=== PATIENT | female | born 2000 | race Two or more races ===

== ENCOUNTER 2022-06-04 14:33 | Emergency (ER) | payer MEDICAID, SELFPAY ==
--- NOTE | ~2022-06-04 | US_ITS ---
EXAMINATION: US PELVIS CLINICAL INFORMATION: Pelvic pain. Rule out tubo-ovarian abscess COMPARISON: Pelvic ultrasound 03/23/2018, CT abdomen and pelvis 01/30/2014 TECHNIQUE: Ultrasound of the pelvis is performed using both transabdominal and transvaginal transducers along with Doppler. Transvaginal imaging is performed due to inadequate visualization transabdominally. FINDINGS: Uterus: The uterus is anteverted, anteflexed, and measures 7.9 x 2.3 x 4.6 cm in sagittal, AP, transverse dimensions cm. The double wall endometrial thickness is 0.2 mm. An IUD appears appropriately positioned in the endometrial cavity. The uterus is smooth in contour and has normal myometrial echogenicity. No visible fibroid. Adnexa: Both ovaries are visualized. There is normal color flow to the adnexa. There is no ovarian torsion. There is no pelvic ascites or fluid collection. Right ovary measures 3.2 x 1.5 x 1.8 cm, volume 4.5 mL. Left ovary measures 3.2 x 1.4 x 2.1 cm, volume 5 mL. There is an immediately adjacent paraovarian/adnexal cyst measuring approximately 3 x 3.1 x 2.7 cm in size. This contains multiple septations with some peripheral dopplerable flow. No septal vascularity or discrete mural nodules. 3.2 cm similar-appearing cyst was seen on comparison ultrasound performed in 2018 as well. US/US pelvic ovarian doppler IMPRESSION: 1. No evidence of ovarian torsion. 2. Normal uterus. IUD in appropriate position. 3. 3.1 cm left paraovarian/adnexal cyst containing multiple internal septations versus retracted clot. No septal vascularity or mural nodules. Would suggest follow-up pelvic ultrasound in 6-12 weeks to assess for change or resolution. 4. Normal right ovary. 5. No pelvic ascites.
--- NOTE | ~2022-06-04 | XR_ITS ---
EXAMINATION: XR CHEST CLINICAL INFORMATION: Cough COMPARISON: None TECHNIQUE: 2 views of the chest were obtained. FINDINGS: No significant abnormality is noted involving the heart, lungs, mediastinum, bony thorax or soft tissues. XR/XR chest 2V IMPRESSION: Unremarkable examination.
--- NOTE | ~2022-06-04 | US_ITS ---
EXAMINATION: US PELVIS CLINICAL INFORMATION: Pelvic pain. Rule out tubo-ovarian abscess COMPARISON: Pelvic ultrasound 03/23/2018, CT abdomen and pelvis 01/30/2014 TECHNIQUE: Ultrasound of the pelvis is performed using both transabdominal and transvaginal transducers along with Doppler. Transvaginal imaging is performed due to inadequate visualization transabdominally. FINDINGS: Uterus: The uterus is anteverted, anteflexed, and measures 7.9 x 2.3 x 4.6 cm in sagittal, AP, transverse dimensions cm. The double wall endometrial thickness is 0.2 mm. An IUD appears appropriately positioned in the endometrial cavity. The uterus is smooth in contour and has normal myometrial echogenicity. No visible fibroid. Adnexa: Both ovaries are visualized. There is normal color flow to the adnexa. There is no ovarian torsion. There is no pelvic ascites or fluid collection. Right ovary measures 3.2 x 1.5 x 1.8 cm, volume 4.5 mL. Left ovary measures 3.2 x 1.4 x 2.1 cm, volume 5 mL. There is an immediately adjacent paraovarian/adnexal cyst measuring approximately 3 x 3.1 x 2.7 cm in size. This contains multiple septations with some peripheral dopplerable flow. No septal vascularity or discrete mural nodules. 3.2 cm similar-appearing cyst was seen on comparison ultrasound performed in 2018 as well. US/US pelvic and transvaginal IMPRESSION: 1. No evidence of ovarian torsion. 2. Normal uterus. IUD in appropriate position. 3. 3.1 cm left paraovarian/adnexal cyst containing multiple internal septations versus retracted clot. No septal vascularity or mural nodules. Would suggest follow-up pelvic ultrasound in 6-12 weeks to assess for change or resolution. 4. Normal right ovary. 5. No pelvic ascites.
[2022-06-04 14:53] VITALS: BP 125/67; PULSE 98; RESP 18; TEMP 36.7; O2SAT 98; BMI 18.8
--- NOTE | 2022-06-04 14:53 | ED.GENADULT ---
HPI - General Adult General Chief complaint: General Medical <VADIM Goff - Last Filed: 06/07/22 09:21> Stated complaint: Lots of mucus/Ovary issues <VADIM Goff - Last Filed: 06/07/22 09:21> Time Seen by Provider: 06/04/22 15:54 <VADIM Goff Last Filed: 06/07/22 09:21> History of Present Illness HPI narrative: Patient with no complaints First complaint is she you of developed pelvic pain several days ago, pain is not associated with any vaginal discharge or bleeding she has no dysuria no nausea no vomiting no other abdominal pain no back pain no flank pain Second complaint is runny nose and mild cough and feeling congested for 1-2 days, no shortness of breath no chest pain no nausea or vomiting no skin rash no sore throat no difficulty breathing or swallowing <VADIM Molina Last Filed: 06/30/22 11:59> Related Data Home medications: Previous Rx's Medication Instructions Recorded doxycycline hyclate 100 mg tablet 100 mg PO BID 14 days #28 tabs 06/04/22 metronidazole 500 mg tablet 500 mg PO BID 14 days #28 tabs 06/04/22 fluconazole 150 mg tablet 150 mg PO Q3D 2 doses #2 tabs 06/07/22 (Diflucan) <VADIM Goff Last Filed: 06/07/22 09:21> Allergies/adverse reactions: Allergies Allergy/AdvReac Type Severity Reaction Status Date / Time apple [APPLE] Allergy Unknown UNKNOWN Unverified 12/30/19 17:07 <VADIM Goff Last Filed: 06/07/22 09:21> FOR[facility], [facility] Past Medical History Source: nursing notes reviewed <VADIM Molina - Last Filed: 06/30/22 11:59> Social History Social History: Social History Advance Directives: No Advance Directives Information Provided: No <VADIM Goff Last Filed: 06/07/22 09:21> Physical Exam ED Vital Signs: Vital Signs - 24 hr 06/04/22 14:53 Temperature 98.0 F Pulse Rate 98 Respiratory Rate 18 Blood Pressure 125/67 Pulse Oximetry 98 Oxygen Delivery Method Room Air BMI result Body Mass Index 18.8 <VADIM Goff Last Filed: 06/07/22 09:21> Vital Signs - 24 hr 06/04/22 14:53 Temperature 98.0 F Pulse Rate 98 Respiratory Rate 18 Blood Pressure 125/67 Pulse Oximetry 98 Oxygen Delivery Method Room Air BMI result Body Mass Index 18.8 <VADIM Molina - Last Filed: 06/30/22 11:59> General appearance is no acute distress The eyes no redness or discharge The sinuses nontender The pharynx is clear no redness swelling or exudate membranes are moist Neck is supple Chest clear to auscultation with full symmetric equal breath sounds Heart no murmur The abdomen there was mild tenderness in suprapubic region no rebound no guarding Pelvic exam was done by physician rehab care assistant naomi quesada as patient requested a female for the pelvic exam She reported some left adnexal tenderness, no mass no bleeding there was some scant discharge, no cervical motion tenderness, no lesions no ulcerations no rash Extremities range of motion x4 and Skin no rashes <VADIM Molina - Last Filed: 06/30/22 11:59> Course Course Course Narrative: RME--21yo F w/no sig PMHx c/o productive cough with SOB x 2 days. Also reports LLQ abd pain radiating to back x2 days with assoc dysuria. Patient denies fever, nausea/vomiting, vaginal bleeding/discharge COVID-19/flu, CXR, labs, UA ordered <VADIM Goff - Last Filed: 06/07/22 09:21> RME--21yo F w/no sig PMHx c/o productive cough with SOB x 2 days. Also reports LLQ abd pain radiating to back x2 days with assoc dysuria. Patient denies fever, nausea/vomiting, vaginal bleeding/discharge COVID-19/flu, CXR, labs, UA ordered White blood count was 12.3, chemistries without any acute abnormality, LFTs no acute abnormality, was negative, urinalysis was negative Pelvic exam by physician rehab care assistant Naomi showed some adnexal tenderness and patient is sexually active and she will be treated for possible PID with Rocephin and doxycycline and Flagyl Pelvic ultrasound showed no evidence of torsion no evidence of abscess, but did showed a 3.1 cm left paraovarian adnexal cyst with multiple septations She is advised to follow with welder railcar mechanic as she may need a repeat ultrasound in 6-12 weeks <VADIM Molina - Last Filed: 06/30/22 11:59> Reevaluation(s) Reevaluation #1: 06/07/22920--patient's cultures positive for Ely. Called spoke with patient this morning made aware of results, scented Diflucan to the pharmacy <VADIM Goff - Last Filed: 06/07/22 09:21> Medications Administered Discontinued Medications Generic Name Dose Route Start Last Admin Trade Name Freq PRN Reason Stop Dose Admin Ceftriaxone Sodium 500 mg 06/04/22 19:25 06/04/22 20:13 Ceftriaxone Sodium 500 Mg Vial IM 06/04/22 19:26 500 mg ONCE ONE Administration Doxycycline Monohydrate 100 mg 06/04/22 19:25 06/04/22 20:13 Doxycycline Monohydrate 100 Mg Capsule PO 06/04/22 19:26 100 mg ONCE ONE Administration Metronidazole 500 mg 06/04/22 19:25 06/04/22 20:13 Metronidazole 500 Mg Tablet PO 06/04/22 19:26 500 mg ONCE ONE Administration Naproxen 500 mg 06/04/22 18:43 06/04/22 18:46 Naproxen 500 Mg Tablet PO 06/04/22 18:44 Not Given ONCE ONE <VADIM Goff - Last Filed: 06/07/22 09:21> Medications Administered Discontinued Medications Generic Name Dose Route Start Last Admin Trade Name Freq PRN Reason Stop Dose Admin Ceftriaxone Sodium 500 mg 06/04/22 19:25 06/04/22 20:13 Ceftriaxone Sodium 500 Mg Vial IM 06/04/22 19:26 500 mg ONCE ONE Administration Doxycycline Monohydrate 100 mg 06/04/22 19:25 06/04/22 20:13 Doxycycline Monohydrate 100 Mg Capsule PO 06/04/22 19:26 100 mg ONCE ONE Administration Metronidazole 500 mg 06/04/22 19:25 06/04/22 20:13 Metronidazole 500 Mg Tablet PO 06/04/22 19:26 500 mg ONCE ONE Administration Naproxen 500 mg 06/04/22 18:43 06/04/22 18:46 Naproxen 500 Mg Tablet PO 06/04/22 18:44 Not Given ONCE ONE <VADIM Molina - Last Filed: 06/30/22 11:59> Medical Decision Making Lab Data Result Diagrams: 06/04/22 15:20 06/04/22 15:20 <VADIM Goff - Last Filed: 06/07/22 09:21> Labs: Lab Results 06/04/22 06/04/22 06/04/22 Range/Units 01:19 15:20 15:20 WBC (4.8-10.8) X10*3/uL RBC (4.20-5.50) X10*6/uL Hgb (12.0-16.0) g/dl Hct (37.0-47.0) % MCV (80.0-98.0) fL MCH (27.0-33.0) pg MCHC (31.0-35.0) g/dl RDW (11.0-16.0) % Plt Count (160-400) X10*3/uL MPV (9.4-12.3) fL Immature Gran % (Auto) (0.0-0.4) % Neut % (Auto) (45-73) % Lymph % (Auto) (20-40) % Cassia % (Auto) (2-11) % Eos % (Auto) (0-4) % Baso % (Auto) (0-2) % Lymph # (Auto) (1.2-4.9) X10*3/uL Cassia # (Auto) (0.1-1.2) X10*3/uL Eos # (Auto) (0.0-0.4) X10*3/uL Baso # (Auto) (0.0-0.2) X10*3/uL Abs Immat Gran (auto) (0.00-0.03) X10*3/uL Absolute Neuts (auto) (2.0-8.3) x10*3/uL Absolute Nucleated RBC (0.0-0.012) X10*3/uL Nucleated RBC % (auto) (0.0-0.2) /100WBC Sodium (135-145) mmol/L Potassium (3.3-5.1) mmol/L Chloride (96-108) mmol/L Carbon Dioxide (22-29) mmol/L Anion Gap (12-20) BUN (9-16) mg/dL Creatinine (0.5-1.4) mg/dL Estim Creat Clear Calc Estimated GFR Random Glucose (60-115) mg/dL Calcium (8.4-10.2) mg/dL Magnesium (1.6-2.6) mg/dL Total Bilirubin (0.0-1.0) mg/dL Direct Bilirubin (0.0-0.5) mg/dL AST (5-31) U/L ALT (0-31) U/L Alkaline Phosphatase (39-117) U/L Total Protein (6.5-8.0) g/dL Albumin (3.5-5.0) g/dL Lipase (8-78) U/L Urine Color Urine Appearance Urine pH (5.0-9.0) Ur Specific [place] (1.005-1.025) Urine Protein (Neg-Trace) mg/dL Urine Glucose (UA) (Negative) mg/dL Urine Ketones (Negative) mg/dL Urine Blood (Negative) Urine Nitrite (Negative) Ur Leukocyte Esterase (Negative) Urine RBC (0-2) /HPF Urine WBC (0-5) /HPF Ur Squamous Epith Cells (0-2) /HPF Urine Bacteria (None Seen) Hyaline Casts (0-2) /LPF Urine Test (NEGATIVE) Ely species DNA (Negative) Chlam trachomat DNA PCR (Not Detect.) COVID-19 (JUAN) Negative Cancelled (Negative) COVID-19 Clin Com See Note Cancelled Gardnerella DNA Probe (Negative) Influenza Type A (FRED) Negative (Negative) Influenza Type B (FRED) Negative (Negative) Influenza A & B Note See Note N.gonorrhoeae DNA (PCR) (Not Detect.) Trichomonas DNA Probe (Negative) 06/04/22 06/04/22 06/04/22 Range/Units 15:20 15:20 15:20 WBC 12.3 H (4.8-10.8) X10*3/uL RBC 5.07 (4.20-5.50) X10*6/uL Hgb 14.7 (12.0-16.0) g/dl Hct 43.8 (37.0-47.0) % MCV 86.4 (80.0-98.0) fL MCH 29.0 (27.0-33.0) pg MCHC 33.6 (31.0-35.0) g/dl RDW 13.0 (11.0-16.0) % Plt Count 335 (160-400) X10*3/uL MPV 9.1 L (9.4-12.3) fL Immature Gran % (Auto) 0.4 (0.0-0.4) % Neut % (Auto) 74.7 H (45-73) % Lymph % (Auto) 11.0 L (20-40) % Cassia % (Auto) 10.2 (2-11) % Eos % (Auto) 3.3 (0-4) % Baso % (Auto) 0.4 (0-2) % Lymph # (Auto) 1.4 (1.2-4.9) X10*3/uL Cassia # (Auto) 1.3 H (0.1-1.2) X10*3/uL Eos # (Auto) 0.4 (0.0-0.4) X10*3/uL Baso # (Auto) 0.1 (0.0-0.2) X10*3/uL Abs Immat Gran (auto) 0.05 H (0.00-0.03) X10*3/uL Absolute Neuts (auto) 9.2 H (2.0-8.3) x10*3/uL Absolute Nucleated RBC 0.000 (0.0-0.012) X10*3/uL Nucleated RBC % (auto) 0.0 (0.0-0.2) /100WBC Sodium 138 (135-145) mmol/L Potassium 3.6 (3.3-5.1) mmol/L Chloride 104 (96-108) mmol/L Carbon Dioxide 26 (22-29) mmol/L Anion Gap 12 (12-20) BUN 8 L (9-16) mg/dL Creatinine 0.77 (0.5-1.4) mg/dL Estim Creat Clear Calc 84.1 Estimated GFR > 60 Random Glucose 82 (60-115) mg/dL Calcium 9.2 (8.4-10.2) mg/dL Magnesium 2.0 (1.6-2.6) mg/dL Total Bilirubin 0.5 (0.0-1.0) mg/dL Direct Bilirubin < 0.2 (0.0-0.5) mg/dL AST 15 (5-31) U/L ALT 11 (0-31) U/L Alkaline Phosphatase 109 (39-117) U/L Total Protein 7.1 (6.5-8.0) g/dL Albumin 4.2 (3.5-5.0) g/dL Lipase 7 L (8-78) U/L Urine Color Yellow Urine Appearance Cloudy Urine pH 6.5 (5.0-9.0) Ur Specific [place] 1.025 (1.005-1.025) Urine Protein Trace (Neg-Trace) mg/dL Urine Glucose (UA) Negative (Negative) mg/dL Urine Ketones 15 (Negative) mg/dL Urine Blood Negative (Negative) Urine Nitrite Negative (Negative) Ur Leukocyte Esterase Trace H (Negative) Urine RBC 0-2 (0-2) /HPF Urine WBC 0-5 (0-5) /HPF Ur Squamous Epith Cells 6-10 (0-2) /HPF Urine Bacteria 3+ (None Seen) Hyaline Casts 0-2 (0-2) /LPF Urine Test (NEGATIVE) Ely species DNA (Negative) Chlam trachomat DNA PCR (Not Detect.) COVID-19 (JUAN) (Negative) COVID-19 Clin Com Gard[place]rella DNA Probe (Negative) Influenza Type A (FRED) (Negative) Influenza Type B (FRED) (Negative) Influenza A & B Note N.gonorrhoeae DNA (PCR) (Not Detect.) Trichomonas DNA Probe (Negative) 06/04/22 06/04/22 06/04/22 Range/Units 15:20 17:45 17:45 WBC (4.8-10.8) X10*3/uL RBC (4.20-5.50) X10*6/uL Hgb (12.0-16.0) g/dl Hct (37.0-47.0) % MCV (80.0-98.0) fL MCH (27.0-33.0) pg MCHC (31.0-35.0) g/dl RDW (11.0-16.0) % Plt Count (160-400) X10*3/uL MPV (9.4-12.3) fL Immature Gran % (Auto) (0.0-0.4) % Neut % (Auto) (45-73) % Lymph % (Auto) (20-40) % Cassia % (Auto) (2-11) % Eos % (Auto) (0-4) % Baso % (Auto) (0-2) % Lymph # (Auto) (1.2-4.9) X10*3/uL Cassia # (Auto) (0.1-1.2) X10*3/uL Eos # (Auto) (0.0-0.4) X10*3/uL Baso # (Auto) (0.0-0.2) X10*3/uL Abs Immat Gran (auto) (0.00-0.03) X10*3/uL Absolute Neuts (auto) (2.0-8.3) x10*3/uL Absolute Nucleated RBC (0.0-0.012) X10*3/uL Nucleated RBC % (auto) (0.0-0.2) /100WBC Sodium (135-145) mmol/L Potassium (3.3-5.1) mmol/L Chloride (96-108) mmol/L Carbon Dioxide (22-29) mmol/L Anion Gap (12-20) BUN (9-16) mg/dL Creatinine (0.5-1.4) mg/dL Estim Creat Clear Calc Estimated GFR Random Glucose (60-115) mg/dL Calcium (8.4-10.2) mg/dL Magnesium (1.6-2.6) mg/dL Total Bilirubin (0.0-1.0) mg/dL Direct Bilirubin (0.0-0.5) mg/dL AST (5-31) U/L ALT (0-31) U/L Alkaline Phosphatase (39-117) U/L Total Protein (6.5-8.0) g/dL Albumin (3.5-5.0) g/dL Lipase (8-78) U/L Urine Color Urine Appearance Urine pH (5.0-9.0) Ur Specific [place] (1.005-1.025) Urine Protein (Neg-Trace) mg/dL Urine Glucose (UA) (Negative) mg/dL Urine Ketones (Negative) mg/dL Urine Blood (Negative) Urine Nitrite (Negative) Ur Leukocyte Esterase (Negative) Urine RBC (0-2) /HPF Urine WBC (0-5) /HPF Ur Squamous Epith Cells (0-2) /HPF Urine Bacteria (None Seen) Hyaline Casts (0-2) /LPF Urine Test NEGATIVE (NEGATIVE) Ely species DNA Positive A (Negative) Chlam trachomat DNA PCR NOT DETECTED (Not Detect.) COVID-19 (JUAN) (Negative) COVID-19 Clin Com [place] DNA Probe Negative (Negative) Influenza Type A (FRED) (Negative) Influenza Type B (FRED) (Negative) Influenza A & B Note N.gonorrhoeae DNA (PCR) NOT DETECTED (Not Detect.) Trichomonas DNA Probe Negative (Negative) <VADIM Goff - Last Filed: 06/07/22 09:21> Lab Results 06/04/22 06/04/22 06/04/22 Range/Units 01:19 15:20 15:20 WBC (4.8-10.8) X10*3/uL RBC (4.20-5.50) X10*6/uL Hgb (12.0-16.0) g/dl Hct (37.0-47.0) % MCV (80.0-98.0) fL MCH (27.0-33.0) pg MCHC (31.0-35.0) g/dl RDW (11.0-16.0) % Plt Count (160-400) X10*3/uL MPV (9.4-12.3) fL Immature Gran % (Auto) (0.0-0.4) % Neut % (Auto) (45-73) % Lymph % (Auto) (20-40) % Cassia % (Auto) (2-11) % Eos % (Auto) (0-4) % Baso % (Auto) (0-2) % Lymph # (Auto) (1.2-4.9) X10*3/uL Cassia # (Auto) (0.1-1.2) X10*3/uL Eos # (Auto) (0.0-0.4) X10*3/uL Baso # (Auto) (0.0-0.2) X10*3/uL Abs Immat Gran (auto) (0.00-0.03) X10*3/uL Absolute Neuts (auto) (2.0-8.3) x10*3/uL Absolute Nucleated RBC (0.0-0.012) X10*3/uL Nucleated RBC % (auto) (0.0-0.2) /100WBC Sodium (135-145) mmol/L Potassium (3.3-5.1) mmol/L Chloride (96-108) mmol/L Carbon Dioxide (22-29) mmol/L Anion Gap (12-20) BUN (9-16) mg/dL Creatinine (0.5-1.4) mg/dL Estim Creat Clear Calc Estimated GFR Random Glucose (60-115) mg/dL Calcium (8.4-10.2) mg/dL Magnesium (1.6-2.6) mg/dL Total Bilirubin (0.0-1.0) mg/dL Direct Bilirubin (0.0-0.5) mg/dL AST (5-31) U/L ALT (0-31) U/L Alkaline Phosphatase (39-117) U/L Total Protein (6.5-8.0) g/dL Albumin (3.5-5.0) g/dL Lipase (8-78) U/L Urine Color Urine Appearance Urine pH (5.0-9.0) Ur Specific [place] (1.005-1.025) Urine Protein (Neg-Trace) mg/dL Urine Glucose (UA) (Negative) mg/dL Urine Ketones (Negative) mg/dL Urine Blood (Negative) Urine Nitrite (Negative) Ur Leukocyte Esterase (Negative) Urine RBC (0-2) /HPF Urine WBC (0-5) /HPF Ur Squamous Epith Cells (0-2) /HPF Urine Bacteria (None Seen) Hyaline Casts (0-2) /LPF Urine Test (NEGATIVE) Ely species DNA (Negative) Chlam trachomat DNA PCR (Not Detect.) COVID-19 (JUAN) Negative Cancelled (Negative) COVID-19 Clin Com See Note Cancelled [place] DNA Probe (Negative) Influenza Type A (FRED) Negative (Negative) Influenza Type B (FRED) Negative (Negative) Influenza A & B Note See Note N.gonorrhoeae DNA (PCR) (Not Detect.) Trichomonas DNA Probe (Negative) 02/21/23 02/21/23 02/21/23 Range/Units 15:20 15:20 15:20 WBC 12.3 H (4.8-10.8) X10*3/uL RBC 5.07 (4.20-5.50) X10*6/uL Hgb 14.7 (12.0-16.0) g/dl Hct 43.8 (37.0-47.0) % MCV 86.4 (80.0-98.0) fL MCH 29.0 (27.0-33.0) pg MCHC 33.6 (31.0-35.0) g/dl RDW 13.0 (11.0-16.0) % Plt Count 335 (160-400) X10*3/uL MPV 9.1 L (9.4-12.3) fL Immature Gran % (Auto) 0.4 (0.0-0.4) % Neut % (Auto) 74.7 H (45-73) % Lymph % (Auto) 11.0 L (20-40) % Cassia % (Auto) 10.2 (2-11) % Eos % (Auto) 3.3 (0-4) % Baso % (Auto) 0.4 (0-2) % Lymph # (Auto) 1.4 (1.2-4.9) X10*3/uL Cassia # (Auto) 1.3 H (0.1-1.2) X10*3/uL Eos # (Auto) 0.4 (0.0-0.4) X10*3/uL Baso # (Auto) 0.1 (0.0-0.2) X10*3/uL Abs Immat Gran (auto) 0.05 H (0.00-0.03) X10*3/uL Absolute Neuts (auto) 9.2 H (2.0-8.3) x10*3/uL Absolute Nucleated RBC 0.000 (0.0-0.012) X10*3/uL Nucleated RBC % (auto) 0.0 (0.0-0.2) /100WBC Sodium 138 (135-145) mmol/L Potassium 3.6 (3.3-5.1) mmol/L Chloride 104 (96-108) mmol/L Carbon Dioxide 26 (22-29) mmol/L Anion Gap 12 (12-20) BUN 8 L (9-16) mg/dL Creatinine 0.77 (0.5-1.4) mg/dL Estim Creat Clear Calc 84.1 Estimated GFR > 60 Random Glucose 82 (60-115) mg/dL Calcium 9.2 (8.4-10.2) mg/dL Magnesium 2.0 (1.6-2.6) mg/dL Total Bilirubin 0.5 (0.0-1.0) mg/dL Direct Bilirubin < 0.2 (0.0-0.5) mg/dL AST 15 (5-31) U/L ALT 11 (0-31) U/L Alkaline Phosphatase 109 (39-117) U/L Total Protein 7.1 (6.5-8.0) g/dL Albumin 4.2 (3.5-5.0) g/dL Lipase 7 L (8-78) U/L Urine Color Yellow Urine Appearance Cloudy Urine pH 6.5 (5.0-9.0) Ur Specific [place] 1.025 (1.005-1.025) Urine Protein Trace (Neg-Trace) mg/dL Urine Glucose (UA) Negative (Negative) mg/dL Urine Ketones 15 (Negative) mg/dL Urine Blood Negative (Negative) Urine Nitrite Negative (Negative) Ur Leukocyte Esterase Trace H (Negative) Urine RBC 0-2 (0-2) /HPF Urine WBC 0-5 (0-5) /HPF Ur Squamous Epith Cells 6-10 (0-2) /HPF Urine Bacteria 3+ (None Seen) Hyaline Casts 0-2 (0-2) /LPF Urine Test (NEGATIVE) [place] species DNA (Negative) Chlam trachomat DNA PCR (Not Detect.) COVID-19 (JUAN) (Negative) COVID-19 Clin Com [place] DNA Probe (Negative) Influenza Type A (FRED) (Negative) Influenza Type B (FRED) (Negative) Influenza A & B Note N.gonorrhoeae DNA (PCR) (Not Detect.) Trichomonas DNA Probe (Negative) 06/04/22 06/04/22 06/04/22 Range/Units 15:20 17:45 17:45 WBC (4.8-10.8) X10*3/uL RBC (4.20-5.50) X10*6/uL Hgb (12.0-16.0) g/dl Hct (37.0-47.0) % MCV (80.0-98.0) fL MCH (27.0-33.0) pg MCHC (31.0-35.0) g/dl RDW (11.0-16.0) % Plt Count (160-400) X10*3/uL MPV (9.4-12.3) fL Immature Gran % (Auto) (0.0-0.4) % Neut % (Auto) (45-73) % Lymph % (Auto) (20-40) % Cassia % (Auto) (2-11) % Eos % (Auto) (0-4) % Baso % (Auto) (0-2) % Lymph # (Auto) (1.2-4.9) X10*3/uL Cass[place] # (Auto) (0.1-1.2) X10*3/uL Eos # (Auto) (0.0-0.4) X10*3/uL Baso # (Auto) (0.0-0.2) X10*3/uL Abs Immat Gran (auto) (0.00-0.03) X10*3/uL Absolute Neuts (auto) (2.0-8.3) x10*3/uL Absolute Nucleated RBC (0.0-0.012) X10*3/uL Nucleated RBC % (auto) (0.0-0.2) /100WBC Sodium (135-145) mmol/L Potassium (3.3-5.1) mmol/L Chloride (96-108) mmol/L Carbon Dioxide (22-29) mmol/L Anion Gap (12-20) BUN (9-16) mg/dL Creatinine (0.5-1.4) mg/dL Estim Creat Clear Calc Estimated GFR Random Glucose (60-115) mg/dL Calcium (8.4-10.2) mg/dL Magnesium (1.6-2.6) mg/dL Total Bilirubin (0.0-1.0) mg/dL Direct Bilirubin (0.0-0.5) mg/dL AST (5-31) U/L ALT (0-31) U/L Alkaline Phosphatase (39-117) U/L Total Protein (6.5-8.0) g/dL Albumin (3.5-5.0) g/dL Lipase (8-78) U/L Urine Color Urine Appearance Urine pH (5.0-9.0) Ur Specific [place] (1.005-1.025) Urine Protein (Neg-Trace) mg/dL Urine Glucose (UA) (Negative) mg/dL Urine Ketones (Negative) mg/dL Urine Blood (Negative) Urine Nitrite (Negative) Ur Leukocyte Esterase (Negative) Urine RBC (0-2) /HPF Urine WBC (0-5) /HPF Ur Squamous Epith Cells (0-2) /HPF Urine Bacteria (None Seen) Hyaline Casts (0-2) /LPF Urine Test NEGATIVE (NEGATIVE) Ely species DNA Positive A (Negative) Chlam trachomat DNA PCR NOT DETECTED (Not Detect.) COVID-19 (JUAN) (Negative) COVID-19 Clin Com [place] DNA Probe Negative (Negative) Influenza Type A (FRED) (Negative) Influenza Type B (FRED) (Negative) Influenza A & B Note N.gonorrhoeae DNA (PCR) NOT DETECTED (Not Detect.) Trichomonas DNA Probe Negative (Negative) <VADIM Molina - Last Filed: 06/30/22 11:59> Discharge Plan Discharge Clinical Impression: Pelvic pain, Acute pelvic inflammatory disease (PID), Acute upper respiratory infection <VADIM Goff Last Filed: 06/07/22 09:21> Patient Disposition: Home, Self-Care <VADIM Goff Last Filed: 06/07/22 09:21> Additional Instructions: There is a chance that the pain in her pelvic area could be from PID, pelvic inflammatory disease, which is very hard to diagnose but if left untreated can make a young woman infertile so we are treating with antibiotics Ultrasound showed a adnexal cyst which is usually something that grows and goes away with the female cycle and they recommended follow with welder railcar mechanic for repeat ultrasound in 6-12 weeks It is also good idea to follow with welder railcar mechanic for further evaluation of the pelvic pain Return any time for fever, worsening pain any worse condition or any concerns <VADIM Goff - Last Filed: 06/07/22 09:21> Prescriptions: New metronidazole 500 mg tablet 500 mg PO BID 14 Days Qty: 28 0RF doxycycline hyclate 100 mg tablet 100 mg PO BID 14 Days Qty: 28 0RF fluconazole [Diflucan] 150 mg tablet 150 mg PO Q3D Qty: 2 0RF Rx Instructions: may repeat second dose 72 hrs after first dose if symptoms persist <VADIM Goff - Last Filed: 06/07/22 09:21> Referrals: Allen Kelsye MD [Physician] - (Adnexal cyst/pelvic pain/treated for possible PID) <VADIM Goff - Last Filed: 06/07/22 09:21> Stand Alone Forms: Work/School Release <VADIM Goff - Last Filed: 06/07/22 09:21> Interventions: ED Discharge Assessment Last Done: 06/04/22 20:21 <VADIM Goff - Last Filed: 06/07/22 09:21> Discharge Date/Time: 06/04/22 20:22 <VADIM Goff - Last Filed: 06/07/22 09:21>
[2022-06-04 15:27] LABS: MANUAL DIFF FLAG NO
[2022-06-04 15:29] LABS: Basophils Absolute Auto 0.1 X10*3/uL (0.0-0.2); Basophils Percent Auto 0.4 % (0-2); Eosinophils Absolute Auto 0.4 X10*3/uL (0.0-0.4); Eosinophils Percent Auto 3.3 % (0-4); Hematocrit 43.8 % (37.0-47.0); Hemoglobin 14.7 g/dl (12.0-16.0); Imm Gran Abs Auto 0.05 X10*3/uL (0.00-0.03); Imm Gran Pct Auto 0.4 % (0.0-0.4); Lymphocytes Absolute Auto 1.4 X10*3/uL (1.2-4.9); Mean Corpuscular HGB Conc 33.6 g/dl (31.0-35.0); Mean Corpuscular Volume 86.4 fL (80.0-98.0); Mean Platelet Volume 9.1 fL (9.4-12.3); Monocytes Absolute Auto 1.3 X10*3/uL (0.1-1.2); Monocytes Percent Auto 10.2 % (2-11); Neutrophils Absolute Auto 9.2 x10*3/uL (2.0-8.3); Neutrophils Percent Auto 74.7 % (45-73); Platelet Count 335 X10*3/uL (160-400); Red Blood Count 5.07 X10*6/uL (4.20-5.50); White Blood Count 12.3 X10*3/uL (4.8-10.8)
[2022-06-04 15:31] LABS: Appearance Urine Cloudy; Color Urine Yellow; Glucose Urine UA Negative (Negative); Leukocyte Esterase Urine Trace (Negative); Nitrite Urine Negative (Negative); PH 6.5 (5.0-9.0); Specific Gravity - Urine 1.025 (1.005-1.025); UMIC TRIGGER UACC YES; Urine Blood Negative (Negative); Urine Ketones 15 mg/dL (Negative); Urine Protein Trace mg/dL (Neg-Trace)
[2022-06-04 15:39] LABS: UPreg QC Valid YES; Urine Pregnancy NEGATIVE (NEGATIVE)
[2022-06-04 15:44] LABS: Alanine Aminotransferase 11 U/L (0-31); Albumin Level 4.2 g/dL (3.5-5.0); Alkaline Phosphatase 109 U/L (39-117); Anion Gap 12 (12-20); Aspartate Amino Transferase 15 U/L (5-31); Bilirubin Direct < 0.2 mg/dL (0.0-0.5); Bilirubin Total 0.5 mg/dL (0.0-1.0); Blood Urea Nitrogen 8 mg/dL (9-16); Calcium 9.2 mg/dL (8.4-10.2); Carbon Dioxide 26 mmol/L (22-29); Chloride 104 mmol/L (96-108); Creatinine Clr Calc Pharmacy 84.1; Estimated Glomerular Filt Rate > 60; Glucose Random 82 mg/dL (60-115); Lipase 7 U/L (8-78); Potassium 3.6 mmol/L (3.3-5.1); Sodium 138 mmol/L (135-145); Total Protein 7.1 g/dL (6.5-8.0)
[2022-06-04 16:10] LABS: Bacteria Urine 3+ (None Seen); Hyaline Casts Urine 0-2 /LPF (0-2); RBC Urine 0-2 /HPF (0-2); WBC Urine 0-5 /HPF (0-5)
[2022-06-04 20:01] LABS: COVID-19 Test Negative (Negative); IDNOW Serial# 08D9AD1C
[2022-06-04] MEDS: metroNIDAZOLE 500 MG TABLET PO (20:13)
[2022-06-04] MEDS: Doxycycline Monohydrate 100 MG CAPSULE PO (20:13)
[2022-06-04] MEDS: cefTRIAXone sodium 500 MG VIAL IM (20:13)
--- NOTE | 2022-06-04 20:21 | PC.NURSE ---
pt medicated per orders- pt verbalizes understanding that she will need to follow up with OB-METAL WASHING MACHINE OPERATOR re:ovarian cyst. pt calm cooperative, alert, oriented, NAD at discharge
[2022-06-04 21:35] LABS: IDNOW Serial# BCCEAD1C; Influenza A Negative (Negative); Influenza B2 Negative (Negative)
[2022-06-05 12:02] LABS: CT PCR NOT DETECTED (Not Detect.); NG PCR NOT DETECTED (Not Detect.)
[2022-06-05 12:52] LABS: BV Int Neg Control Negative (Negative); BV Int Pos Control Positive (Positive)
== END 2022-06-04 20:22 | disposition home or self-care (01) ==
PROVIDERS: Physician Assistant; Physician Assistant Medical; Emergency Provider Emergency Medicine
DX: R10.2 Pelvic and perineal pain (principal); N73.0 Acute parametritis and pelvic cellulitis; J06.9 Acute upper respiratory infection, unspecified; Z20.822 Contact with and (suspected) exposure to COVID-19
CPT/HCPCS: 0353U; 36415; 71046; 76830; 76856; 80048; 80076; 81001; 81025; 83690; 83735; 85025; 87480; 87502; 87510; 87635; 87660; 93975; 96372; 99282; 99284; J0696

== ENCOUNTER 2023-12-23 13:46 | Emergency (ER) | payer OTHER, SELFPAY ==
[2023-12-23 14:05] VITALS: BP 116/80; PULSE 108; RESP 18; TEMP 36.7; O2SAT 96; BMI 21.0
--- NOTE | 2023-12-23 14:07 | ED_ITS ---
HPI - General Adult General Chief complaint: Vaginal Bleeding Stated complaint: vaginal bleeding Related Data Previous Rx's ?Medication ?Instructions ?Recorded doxycycline hyclate 100 mg tablet 100 mg PO BID 14 days #28 tabs 06/04/22 metronidazole 500 mg tablet 500 mg PO BID 14 days #28 tabs 06/04/22 fluconazole 150 mg tablet 150 mg PO Q3D 2 doses #2 tabs 06/07/22 (Diflucan) cefuroxime axetil 250 mg tablet 250 mg PO BID 7 days #14 tabs 12/24/23 Allergies Allergy/AdvReac Type Severity Reaction Status Date / Time apple [APPLE] Allergy Unknown UNKNOWN Verified 12/24/23 12:55 [facility] Social History Social History Advance Directives: No Do you have a plan to hurt others: No Plan Physical Exam ED Vital Signs: BMI result Body Mass Index 21.0 Course Course Course Narrative: This is an RME done by VADIM Sibley: Additional HPI, ROS, PE not included below will be deferred to primary provider. 23yo F presents with heavy vaginal bleeding onset this morning. Patient is sexually active (last 2 days ago, with partner, no condom use) and uses a Mirena IUD. Dysuria today as well. Denies fevers, chills, abd pain, cramping. Appearance: Alert.? Oriented X3.? No acute cardiopulmonary distress distress.? Head: Normocephalic, atraumatic, no step-offs or deformities CVS: Pulses normal.? Respiratory: No respiratory distress.? Skin: ? Normal skin color. Neuro: Oriented X 3.? Medical Decision Making Lab Data 12/23/23 14:37 12/23/23 14:37 Labs: Lab Results 12/23/23 12/23/23 Range/Units 14:37 17:41 WBC 15.4 H (4.8-10.8) X10*3/uL RBC 4.90 (4.20-5.50) X10*6/uL Hgb 15.0 (12.0-16.0) g/dl Hct 43.8 (37.0-47.0) % MCV 89.4 (80.0-98.0) fL MCH 30.6 (27.0-33.0) pg MCHC 34.2 (31.0-35.0) g/dl RDW 12.1 (11.0-16.0) % Plt Count 298 (160-400) X10*3/uL MPV 9.5 (9.4-12.3) fL Immature Gran % (Auto) 0.5 H (0.0-0.4) % Neut % (Auto) 84.0 H (45-73) % Lymph % (Auto) 6.1 L (20-40) % [place] % (Auto) 6.1 (2-11) % Eos % (Auto) 2.9 (0-4) % Baso % (Auto) 0.4 (0-2) % Lymph # (Auto) 0.9 L (1.2-4.9) X10*3/uL [place] # (Auto) 0.9 (0.1-1.2) X10*3/uL Eos # (Auto) 0.4 (0.0-0.4) X10*3/uL Baso # (Auto) 0.1 (0.0-0.2) X10*3/uL Abs Immat Gran (auto) 0.07 H (0.00-0.03) X10*3/uL Absolute Neuts (auto) 13.0 H (2.0-8.3) x10*3/uL Absolute Nucleated RBC 0.000 (0.0-0.012) X10*3/uL Nucleated RBC % (auto) 0.0 (0.0-0.2) /100WBC Sodium 138 (135-145) mmol/L Potassium 4.6 (3.3-5.1) mmol/L Chloride 107 (96-108) mmol/L Carbon Dioxide 25 (22-29) mmol/L Anion Gap 11 L (12-20) BUN 10 (9-16) mg/dL Creatinine 0.76 (0.5-1.4) mg/dL Estim Creat Clear Calc 92.6 Estimated GFR > 60 Random Glucose 95 (60-115) mg/dL Calcium 9.5 (8.4-10.2) mg/dL Magnesium 2.2 (1.6-2.6) mg/dL Total Bilirubin 0.6 (0.0-1.0) mg/dL AST 16 (5-31) U/L ALT 17 (0-31) U/L Alkaline Phosphatase 100 (39-117) U/L Total Protein 7.5 (6.5-8.0) g/dL Albumin 4.3 (3.5-5.0) g/dL Beta HCG, Quant < 2 mIU/mL Urine Color BROWN Urine Appearance Turbid Urine pH 6.5 (5.0-9.0) Ur Specific [place] >= 1.030 H (1.005-1.025) Urine Protein 300 (3+) H (Neg-Trace) mg/dL Urine Glucose (UA) 100 H (Negative) mg/dL Urine Ketones Trace (Negative) mg/dL Urine Blood Large (3+) H (Negative) Urine Nitrite Positive H (Negative) Ur Leukocyte Esterase Moderate (2+) H (Negative) Urine RBC >20 H (0-2) /HPF Urine WBC >50 H (0-5) /HPF Ur Squamous Epith Cells 6-10 (0-2) /HPF Urine Bacteria 1+ (None Seen) Hyaline Casts 0-2 (0-2) /LPF Urine Yeast Present Blood Type O Positive Discharge Plan Discharge Clinical Impression: Eloped from emergency department Patient Disposition: Left W/O Completing Treatment Prescriptions: No Action metronidazole 500 mg tablet 500 mg PO BID 14 Days Qty: 28 0RF doxycycline hyclate 100 mg tablet 100 mg PO BID 14 Days Qty: 28 0RF fluconazole [Diflucan] 150 mg tablet 150 mg PO Q3D Qty: 2 0RF Rx Instructions: may repeat second dose 72 hrs after first dose if symptoms persist cefuroxime axetil 250 mg tablet 250 mg PO BID 7 Days Qty: 14 0RF Discharge Date/Time: 12/23/23 19:19
[2023-12-23 14:45] LABS: MANUAL DIFF FLAG NO
[2023-12-23 14:47] LABS: Basophils Absolute Auto 0.1 X10*3/uL (0.0-0.2); Basophils Percent Auto 0.4 % (0-2); Eosinophils Absolute Auto 0.4 X10*3/uL (0.0-0.4); Eosinophils Percent Auto 2.9 % (0-4); Hematocrit 43.8 % (37.0-47.0); Imm Gran Abs Auto 0.07 X10*3/uL (0.00-0.03); Imm Gran Pct Auto 0.5 % (0.0-0.4); Lymphocytes Absolute Auto 0.9 X10*3/uL (1.2-4.9); Lymphocytes Percent Auto 6.1 % (20-40); Mean Corpuscular HGB Conc 34.2 g/dl (31.0-35.0); Mean Corpuscular Hemoglobin 30.6 pg (27.0-33.0); Mean Corpuscular Volume 89.4 fL (80.0-98.0); Mean Platelet Volume 9.5 fL (9.4-12.3); Monocytes Absolute Auto 0.9 X10*3/uL (0.1-1.2); Monocytes Percent Auto 6.1 % (2-11); Platelet Count 298 X10*3/uL (160-400); Red Cell Distribution Width 12.1 % (11.0-16.0); White Blood Count 15.4 X10*3/uL (4.8-10.8)
[2023-12-23 15:19] LABS: Alanine Aminotransferase 17 U/L (0-31); Albumin Level 4.3 g/dL (3.5-5.0); Alkaline Phosphatase 100 U/L (39-117); Anion Gap 11 (12-20); Aspartate Amino Transferase 16 U/L (5-31); Bilirubin Total 0.6 mg/dL (0.0-1.0); Blood Urea Nitrogen 10 mg/dL (9-16); Calcium 9.5 mg/dL (8.4-10.2); Carbon Dioxide 25 mmol/L (22-29); Chloride 107 mmol/L (96-108); Creatinine Clr Calc Pharmacy 92.6; Estimated Glomerular Filt Rate > 60; Glucose Random 95 mg/dL (60-115); Magnesium 2.2 mg/dL (1.6-2.6); Potassium 4.6 mmol/L (3.3-5.1); Sodium 138 mmol/L (135-145); Total Protein 7.5 g/dL (6.5-8.0)
[2023-12-23 15:31] LABS: HCG Quantitative < 2 mIU/mL
[2023-12-23 17:36] VITALS: BP 103/50; PULSE 89; RESP 18; O2SAT 95
[2023-12-23 17:49] LABS: Appearance Urine Turbid; Color Urine BROWN; Glucose Urine UA 100 mg/dL (Negative); Leukocyte Esterase Urine Moderate (2+) (Negative); Nitrite Urine Positive (Negative); PH 6.5 (5.0-9.0); Specific Gravity - Urine >= 1.030 (1.005-1.025); UMIC TRIGGER UACC YES; Urine Blood Large (3+) (Negative); Urine Ketones Trace mg/dL (Negative); Urine Protein 300 (3+) mg/dL (Neg-Trace)
[2023-12-23 18:09] LABS: Bacteria Urine 1+ (None Seen); Hyaline Casts Urine 0-2 /LPF (0-2); RBC Urine >20 /HPF (0-2); UACC Culture Trigger YES; WBC Urine >50 /HPF (0-5)
--- NOTE | 2023-12-23 19:18 | PC.NURSE ---
pt was no answer when called for reassessment.
== END 2023-12-23 19:19 | disposition left against medical advice (07) ==
PROVIDERS: Physician Assistant; Emergency Provider Emergency Medicine; PCP Student in an Organized Health Care Education/Training Program
DX: N93.9 Abnormal uterine and vaginal bleeding, unspecified (principal); R30.0 Dysuria; Z53.21 Procedure and treatment not carried out due to patient leaving prior to being seen by health care provider
CPT/HCPCS: 36415; 80053; 81001; 83735; 84702; 85025; 86900; 86901; 87086; 87088; 87186; 99283

== ENCOUNTER 2023-12-24 11:41 | Emergency (ER) | payer OTHER, SELFPAY ==
[2023-12-24 12:53] VITALS: BP 105/51; PULSE 80; RESP 18; TEMP 36.6; O2SAT 98; BMI 17.4
--- NOTE | 2023-12-24 12:55 | ED.GENADULT ---
HPI - General Adult General Chief complaint: Urogenital-Female Stated complaint: infection-urinary Time Seen by Provider: 12/24/23 12:55 Source: patient Mode of arrival: ambulatory Limitations: no limitations History of Present Illness ED Provider: Doris BREEN HPI narrative: 23-year-old female presents to the emergency department with urinary frequency, urgency, burning ongoing for the past 2 days worsening. Patient was seen here in the department had labs done and a urine however had to leave due to the long wait and other commitments. Patient denies nausea, vomiting, poor p.o. intake, chest pain, shortness of breath, fevers, chills, flank pain. No concerns for Related Data Previous Rx's ?Medication ?Instructions ?Recorded doxycycline hyclate 100 mg tablet 100 mg PO BID 14 days #28 tabs 06/04/22 metronidazole 500 mg tablet 500 mg PO BID 14 days #28 tabs 06/04/22 fluconazole 150 mg tablet 150 mg PO Q3D 2 doses #2 tabs 06/07/22 (Diflucan) cefuroxime axetil 250 mg tablet 250 mg PO BID 7 days #14 tabs 12/24/23 Allergies Allergy/AdvReac Type Severity Reaction Status Date / Time apple [APPLE] Allergy Unknown UNKNOWN Verified 12/24/23 12:55 Review of Systems Review of Systems: Yes all other systems are reviewed and are negative PMFSH Past Medical History Attestation statement: The following information was validated with the patient. Source: old records reviewed and nursing notes reviewed Physical Exam ED Vital Signs: vss Appearance: Alert.? Oriented X3.? No acute distress.? Head: Normocephalic, atraumatic, no step-offs or deformities Eyes: Pupils equal, round and reactive to light.? CVS: Normal heart rate and rhythm.? Pulses normal.? Respiratory: No respiratory distress.? Breath sounds normal.? Abdomen: Soft and nontender.? Skin: Skin warm and dry.? Normal skin color.? Normal skin turgor.? Extremities: No lower extremity edema.? No calf ttp. 5/5 strength to bilateral upper and lower extremities Back: No CVA tenderness bilaterally Neuro: Oriented X 3.? No motor deficit.? No sensory deficit. CN 2-12 intact Course Reevaluation(s) Reevaluation #1: Patient's labs from yesterday with leukocytosis slight shift , an infected urine. Will treat with Ceftin for UTI 250 mg p.o. b.i.d. x7 days. Advised to return with any new or worsening symptoms. Educated on worsening signs and symptoms and when to return. Advised PCP follow-up. Medical Decision Making Medical Decision Making [facility] Narrative: 23-year-old female presents with UTI symptoms for the past 2 days. Seen here yesterday had labs, urine however left without completing treatment. Exam benign History and physical exam concerning for UTI versus cystitis. Unlikely pyelonephritis, obstructing uropathy, systemic illness. I do not suspect metabolic derangements. Patient does not think she is . Reviewed labs from yesterday in urine. Patient needs treatment for urinary tract infection. No need for imaging at this time. Differential Diagnosis Differential Diagnoses: The differential diagnosis associated with the presentation includes History and physical exam concerning for UTI versus cystitis. Unlikely pyelonephritis, obstructing uropathy, systemic illness. I do not suspect metabolic derangements. Patient does not think she is . Admission/Observation Consideration of admission/observation: Escalation of care including admission/observation considered Not indicated Lab Data [facility] Lab Attestation statement: I reviewed the patient's lab results. External Record Review External record reviewed: Office record, Outpatient record, Prior outpatient labs and Prior outpatient radiology Prescription Management I considered prescription management with: Antibiotic Chronic Conditions Denies Critical Care Time Critical Care Time Critical Care Time: No Discharge Plan Discharge Clinical Impression: UTI (urinary tract infection) Patient Disposition: Home, Self-Care Instructions: Urinary Tract Infection in Women (ED) Additional Instructions: Take your medications as prescribed. If you were prescribed antibiotics today, it is important that you take your medication to their entirety, do not skip any doses, do not finish them early. Follow-up with your primary care provider this week. Return to the emergency department with new or worsening symptoms. Such as fevers, chills, chest pain, shortness of breath, nausea, vomiting, dizziness, headache, vision changes, lethargy In case of emergency call 911 Prescriptions: New cefuroxime axetil 250 mg tablet 250 mg PO BID 7 Days Qty: 14 0RF No Action metronidazole 500 mg tablet 500 mg PO BID 14 Days Qty: 28 0RF doxycycline hyclate 100 mg tablet 100 mg PO BID 14 Days Qty: 28 0RF fluconazole [Diflucan] 150 mg tablet 150 mg PO Q3D Qty: 2 0RF Rx Instructions: may repeat second dose 72 hrs after first dose if symptoms persist Referrals: Sarah Carlisle MD [Primary Care Provider] - 2 days Stand Alone Forms: Work/School Release Print Language: Nepalese
[2023-12-24 12:58] VITALS: BP 105/51; PULSE 80; RESP 18; TEMP 36.8; O2SAT 98
== END 2023-12-24 13:19 | disposition home or self-care (01) ==
LOC: HO.ED 13:07
PROVIDERS: Emergency Provider Emergency Medicine Emergency Medical Services; PCP Student in an Organized Health Care Education/Training Program
DX: N39.0 Urinary tract infection, site not specified (principal); R35.0 Frequency of micturition; R39.15 Urgency of urination
CPT/HCPCS: 99282; 99283

== ENCOUNTER 2024-09-24 20:04 | Emergency (ER) | payer OTHER, SELFPAY ==
--- NOTE | ~2024-09-24 | XR_ITS ---
CLINICAL HISTORY: CP 2 view chest x-ray Comparison: None Findings: No consolidation, pneumothorax, or pleural effusion. Normal size heart. No acute fracture. IMPRESSION: No consolidation. This document has been electronically signed by: Jamil Granados MD on 09/24/2024 21:51:40
--- NOTE | 2024-09-24 20:08 | ECG_ITS ---
Test Reason : chest pain Blood Pressure : */* mmHG Vent. Rate : 58 BPM Atrial Rate : 58 BPM P-R Int : 132 ms QRS Dur : 74 ms QT Int : 386 ms P-R-T Axes : 56 78 60 degrees QTcB Int : 378 ms Sinus bradycardia Otherwise normal ECG No previous ECGs available Referred By: Generic ED Physician Electronically Signed By: SHANEKA DYE MD
[2024-09-24 20:20] VITALS: BP 118/72; PULSE 64; RESP 16; TEMP 36.8; O2SAT 98; BMI 16.5
--- NOTE | 2024-09-24 20:20 | ED_ITS ---
HPI - Chest Pain General Chief Complaint: Chest Pain Stated Complaint: cp Related Data Previous Rx's ?Medication ?Instructions ?Recorded doxycycline hyclate 100 mg tablet 100 mg PO BID 14 days #28 tabs 06/04/22 metronidazole 500 mg tablet 500 mg PO BID 14 days #28 tabs 06/04/22 fluconazole 150 mg tablet 150 mg PO Q3D 2 doses #2 tabs 06/07/22 (Diflucan) cefuroxime axetil 250 mg tablet 250 mg PO BID 7 days #14 tabs 12/24/23 methocarbamol 750 mg tablet 750 mg PO TID PRN muscle spasm #20 09/25/24 tabs Allergies Allergy/AdvReac Type Severity Reaction Status Date / Time apple [APPLE] Allergy Unknown UNKNOWN Verified 09/25/24 08:51 [facility] Social History Social History Smoked in Last 30 Days: No Use of substances other than those prescribed or required for medical reasons: No Advance Directives: No Advance Directives Information Provided: Yes Patient : No Physical Exam 2 Vital Signs: Vital Signs: Last Vital Signs Temp 98.2 F 09/24/24 20:20 Pulse 64 09/24/24 20:20 Resp 16 09/24/24 20:20 BP 118/72 09/24/24 20:20 Pulse Ox 98 09/24/24 20:20 O2 Del Method Room Air 09/24/24 20:20 BMI result Body Mass Index 16.5 Course Course Course Narrative: This is an RME: Additional HPI, ROS, PE not included below will be deferred to primary provider. RME assessment and note performed by: Linda Pascual PA-C This is a 42-mrvy[age]ks-female, with no known medical problems, who presents to the ER with complaints of intermittent squeezing chest pain x 2 days. Reports symptoms started. Reporting some nausea. Patient well-appearing, speaking in full sentences appears to be under no acute distress. She does have a IUD, no recent travel, surgery, or hospitalizations. Plan: Labs, xr, orthos, further ER eval needed Reevaluation(s) Reevaluation #1: Patient left without completing treatment. Medical Decision Making Lab Data 09/24/24 20:52 09/24/24 20:52 Labs: Lab Results 09/24/24 Range/Units 20:52 WBC 9.1 (4.8-10.8) X10*3/uL RBC 4.58 (4.20-5.50) X10*6/uL Hgb 14.1 (12.0-16.0) g/dl Hct 40.1 (37.0-47.0) % MCV 87.6 (80.0-98.0) fL MCH 30.8 (27.0-33.0) pg MCHC 35.2 H (31.0-35.0) g/dl RDW 12.6 (11.0-16.0) % Plt Count 334 (160-400) X10*3/uL MPV 9.2 L (9.4-12.3) fL Immature Gran % (Auto) 0.2 (0.0-0.4) % Neut % (Auto) 62.7 (45-73) % Lymph % (Auto) 28.0 (20-40) % [place] % (Auto) 6.6 (2-11) % Eos % (Auto) 2.1 (0-4) % Baso % (Auto) 0.4 (0-2) % Lymph # (Auto) 2.6 (1.2-4.9) X10*3/uL [place] # (Auto) 0.6 (0.1-1.2) X10*3/uL Eos # (Auto) 0.2 (0.0-0.4) X10*3/uL Baso # (Auto) 0.0 (0.0-0.2) X10*3/uL Abs Immat Gran (auto) 0.02 (0.00-0.03) X10*3/uL Absolute Neuts (auto) 5.7 (2.0-8.3) x10*3/uL Absolute Nucleated RBC 0.000 (0.0-0.012) X10*3/uL Nucleated RBC % (auto) 0.0 (0.0-0.2) /100WBC Sodium 140 (135-145) mmol/L Potassium 3.7 (3.3-5.1) mmol/L Chloride 107 (96-108) mmol/L Carbon Dioxide 24 (22-29) mmol/L Anion Gap 13 (12-20) BUN 17 H (9-16) mg/dL Creatinine 0.67 (0.5-1.4) mg/dL Estim Creat Clear Calc 85.7 Estimated GFR > 60 Random Glucose 77 (60-115) mg/dL Calcium 9.7 (8.4-10.2) mg/dL Magnesium 2.2 (1.6-2.6) mg/dL Total Bilirubin 0.5 (0.0-1.0) mg/dL Direct Bilirubin 0.2 (0.0-0.5) mg/dL AST 23 (5-31) U/L ALT 25 (0-31) U/L Alkaline Phosphatase 89 (39-117) U/L Troponin I High Sens < 2.7 (<3.5-17.0) ng/L Total Protein 7.3 (6.5-8.0) g/dL Albumin 4.8 (3.5-5.0) g/dL Beta HCG, Quant < 2 mIU/mL Discharge Plan Discharge Clinical Impression: Chest pain Patient Disposition: Left W/O Completing Treatment Prescriptions: No Action metronidazole 500 mg tablet 500 mg PO BID 14 Days Qty: 28 0RF doxycycline hyclate 100 mg tablet 100 mg PO BID 14 Days Qty: 28 0RF fluconazole [Diflucan] 150 mg tablet 150 mg PO Q3D Qty: 2 0RF Rx Instructions: may repeat second dose 72 hrs after first dose if symptoms persist cefuroxime axetil 250 mg tablet 250 mg PO BID 7 Days Qty: 14 0RF methocarbamol 750 mg tablet 750 mg PO TID PRN (Reason: muscle spasm) Qty: 20 0RF Discharge Date/Time: 09/25/24 01:04
[2024-09-24 20:57] LABS: MANUAL DIFF FLAG NO
[2024-09-24 21:05] LABS: Basophils Percent Auto 0.4 % (0-2); Eosinophils Absolute Auto 0.2 X10*3/uL (0.0-0.4); Eosinophils Percent Auto 2.1 % (0-4); Hematocrit 40.1 % (37.0-47.0); Hemoglobin 14.1 g/dl (12.0-16.0); Imm Gran Abs Auto 0.02 X10*3/uL (0.00-0.03); Imm Gran Pct Auto 0.2 % (0.0-0.4); Lymphocytes Absolute Auto 2.6 X10*3/uL (1.2-4.9); Mean Corpuscular HGB Conc 35.2 g/dl (31.0-35.0); Mean Corpuscular Hemoglobin 30.8 pg (27.0-33.0); Mean Corpuscular Volume 87.6 fL (80.0-98.0); Mean Platelet Volume 9.2 fL (9.4-12.3); Monocytes Absolute Auto 0.6 X10*3/uL (0.1-1.2); Monocytes Percent Auto 6.6 % (2-11); Neutrophils Absolute Auto 5.7 x10*3/uL (2.0-8.3); Neutrophils Percent Auto 62.7 % (45-73); Platelet Count 334 X10*3/uL (160-400); Red Blood Count 4.58 X10*6/uL (4.20-5.50); Red Cell Distribution Width 12.6 % (11.0-16.0); White Blood Count 9.1 X10*3/uL (4.8-10.8)
[2024-09-24 21:18] LABS: Alanine Aminotransferase 25 U/L (0-31); Albumin Level 4.8 g/dL (3.5-5.0); Alkaline Phosphatase 89 U/L (39-117); Anion Gap 13 (12-20); Aspartate Amino Transferase 23 U/L (5-31); Bilirubin Direct 0.2 mg/dL (0.0-0.5); Bilirubin Total 0.5 mg/dL (0.0-1.0); Blood Urea Nitrogen 17 mg/dL (9-16); Calcium 9.7 mg/dL (8.4-10.2); Carbon Dioxide 24 mmol/L (22-29); Chloride 107 mmol/L (96-108); Creatinine Clr Calc Pharmacy 85.7; Estimated Glomerular Filt Rate > 60; Glucose Random 77 mg/dL (60-115); Magnesium 2.2 mg/dL (1.6-2.6); Potassium 3.7 mmol/L (3.3-5.1); Sodium 140 mmol/L (135-145); Total Protein 7.3 g/dL (6.5-8.0)
[2024-09-24 21:19] LABS: HCG Quantitative < 2 mIU/mL; Troponin-I High Sensitivity < 2.7 ng/L (<3.5-17.0)
== END 2024-09-25 01:04 | disposition left against medical advice (07) ==
PROVIDERS: Physician Assistant Medical; Emergency Provider Emergency Medicine
DX: R07.9 Chest pain, unspecified (principal)
CPT/HCPCS: 36415; 71046; 80048; 80076; 83735; 84484; 84702; 85025; 93005; 99283

== ENCOUNTER → 2024-09-24 20:08 | Outpatient (BNV) | payer OTHER, SELFPAY | PROVIDERS: Emergency Provider Emergency Medicine; Visit Provider Internal Medicine Cardiovascular Disease | DX: R00.1 Bradycardia, unspecified (principal) | CPT/HCPCS: 93010 ==

== ENCOUNTER → 2024-09-24 20:24 | Outpatient (BNV) | payer OTHER, SELFPAY | PROVIDERS: Visit Provider Radiology Neuroradiology | DX: R07.9 Chest pain, unspecified (principal) | CPT/HCPCS: 71046 ==

== ENCOUNTER 2024-09-25 08:39 | Emergency (ER) | payer OTHER, SELFPAY ==
--- NOTE | 2024-09-25 08:43 | ECG_ITS ---
Test Reason : chest tightness Blood Pressure : */* mmHG Vent. Rate : 64 BPM Atrial Rate : 64 BPM P-R Int : 136 ms QRS Dur : 76 ms QT Int : 364 ms P-R-T Axes : 81 82 62 degrees QTcB Int : 375 ms Normal sinus rhythm Normal ECG When compared with ECG of 24-Sep-2024 20:14, No significant change was found Referred By: Generic ED Physician Electronically Signed By: SHANEKA DYE MD
[2024-09-25 08:50] VITALS: BP 109/64; PULSE 77; RESP 16; TEMP 36.3; O2SAT 100; BMI 17.5
--- NOTE | 2024-09-25 09:14 | ED.CHESTPAIN ---
HPI - Chest Pain General Chief Complaint: Chest Pain Stated Complaint: tightness around heart Time Seen by Provider: 09/25/24 09:14 Source: patient History of Present Illness HPI narrative: 23-year-old female who denies significant past medical history presents for evaluation of chest pain. Patient states she has been having intermittent left-sided chest pain since May 2024. Patient states she occasionally gets shooting pain and tightness which extends from the left side of her chest to her left upper back. Patient states it is worse with movement. She works at [employer] and does a lot of heavy lifting and repetitive motions she is left-hand dominant. Denies any direct trauma. Patient states that she has been having this pain over the past several days. Currently she is asymptomatic. Patient came to the emergency department yesterday however left without being seen. She denies any shortness of breath. No fevers chills nausea or vomiting. No cough. No sick contacts. She denies any abnormal stressors. Denies anxiety. Risk Factors Coronary artery disease risk factors: none Thoracic aortic dissection risk factors: none Related Data On Oral Contraceptives: No Previous Rx's ?Medication ?Instructions ?Recorded doxycycline hyclate 100 mg tablet 100 mg PO BID 14 days #28 tabs 06/04/22 metronidazole 500 mg tablet 500 mg PO BID 14 days #28 tabs 06/04/22 fluconazole 150 mg tablet 150 mg PO Q3D 2 doses #2 tabs 06/07/22 (Diflucan) cefuroxime axetil 250 mg tablet 250 mg PO BID 7 days #14 tabs 12/24/23 methocarbamol 750 mg tablet 750 mg PO TID PRN muscle spasm #20 09/25/24 tabs Allergies Allergy/AdvReac Type Severity Reaction Status Date / Time apple [APPLE] Allergy Unknown UNKNOWN Verified 09/25/24 08:51 Review of Systems Constitutional: Constitutional: Denies chills, Denies fever(s) and Denies headache(s) Eyes: Eyes: Reports other (No redness.) ENT: Denies headache(s) Cardiovascular: Cardiovascular: Reports chest pain, Denies palpitations, Denies dyspnea, Denies dyspnea on exertion and Denies orthopnea Respiratory: Respiratory: Denies cough, Denies dyspnea and Denies dyspnea on exertion Gastrointestinal: Gastrointestinal: Denies abdominal pain, Denies melena, Denies hematochezia, Denies diarrhea, Denies nausea and Denies vomiting Genitourinary: Genitourinary: Denies dysuria and Denies urinary urgency Musculoskeletal: Musculoskeletal: Reports back pain, Denies muscle weakness and Denies numbness Integumentary/Breasts: Skin/Breast: Denies rash Neurologic: Denies headache(s), Denies focal weakness and Denies numbness Psychiatric: Psychiatric: Denies depression Endocrine: Endocrine: Denies palpitations [facility] Past Medical History Source: old records reviewed Social History Social History Advance Directives: No Advance Directives Information Provided: Yes Physical Exam Vital Signs: Vital Signs: Last Vital Signs Temp 97.4 F 09/25/24 08:50 Pulse 77 09/25/24 08:50 Resp 16 09/25/24 08:50 BP 109/64 09/25/24 08:50 Pulse Ox 100 09/25/24 08:50 O2 Del Method Room Air 09/25/24 08:50 BMI result Body Mass Index 17.5 Const: General: cooperative and no acute distress Neck: Other: Full range of motion, no trapezius tenderness. Resp: Auscultation: clear to auscultation bilaterally Cardio: Rate: regular rate Rhythm: regular rhythm GI: Other: Soft and nontender throughout Skin: Other: No rash to the trunk noted Extrem: Other: Delivery Director is 5/5 bilaterally. Full range of motion of all joints. Mild tenderness along the left subscapular region consistent with the patient's symptoms. Ranging of the left arm also exacerbates symptoms Medical Decision Making Medical Decision Making MDM Narrative: A 23-year-old female with no significant past medical history presents for left-sided chest and upper back pain. Easily reproducible symptoms on exam and suspicious with musculoskeletal in nature given the patient's history. Patient does not have any risk factors cardiac disease. Labs and imaging from yesterday and repeat EKG today are has tried OTC medications such as ibuprofen and acetaminophen but states they do not work for her. She is agreeable to trial of Robaxin. Patient expresses understanding of all discharge instructions and has no further questions at this time. Differential Diagnosis Differential Diagnoses: The differential diagnosis associated with the presentation includes Muscle strain Muscle spasm Disc herniation Nerve impinged Lab Data MDM Lab Attestation statement: I reviewed the patient's lab results. Reviewed from September 24 Independent Interpretation I performed an independent interpretation of an: EKG Interpretation: Sinus without any acute ischemic changes Discharge Plan Discharge Clinical Impression: Acute chest wall pain, Acute upper back pain Patient Disposition: Home, Self-Care Instructions: Chest Wall Pain (ED) Additional Instructions: Rest. Avoid strenuous activity. Robaxin as directed for pain and muscle spasm. Follow-up with your primary care provider. Call this week to schedule a follow-up appointment. Return to the emergency department if you have any worsening of symptoms, or any concerns. Get well soon! Prescriptions: New methocarbamol 750 mg tablet 750 mg PO TID PRN (Reason: muscle spasm) Qty: 20 0RF No Action metronidazole 500 mg tablet 500 mg PO BID 14 Days Qty: 28 0RF doxycycline hyclate 100 mg tablet 100 mg PO BID 14 Days Qty: 28 0RF fluconazole [Diflucan] 150 mg tablet 150 mg PO Q3D Qty: 2 0RF Rx Instructions: may repeat second dose 72 hrs after first dose if symptoms persist cefuroxime axetil 250 mg tablet 250 mg PO BID 7 Days Qty: 14 0RF Stand Alone Forms: Work/School Release Print Language: Bruneian
[2024-09-25 10:30] VITALS: BP 109/64; PULSE 77; RESP 16; TEMP 36.3; O2SAT 100
== END 2024-09-25 10:30 | disposition home or self-care (01) ==
PROVIDERS: Emergency Provider Emergency Medicine; PCP Internal Medicine
DX: R07.89 Other chest pain (principal); M54.6 Pain in thoracic spine; Z79.899 Other long term (current) drug therapy
CPT/HCPCS: 93005; 99283; 99285

== ENCOUNTER → 2024-09-25 08:43 | Outpatient (BNV) | payer OTHER, SELFPAY | PROVIDERS: Emergency Provider Emergency Medicine; PCP Internal Medicine; Visit Provider Internal Medicine Cardiovascular Disease | DX: R07.89 Other chest pain (principal) | CPT/HCPCS: 93010 ==